=== PATIENT | male | born 1960 | race American Indian/Alaskan Native ===

== ENCOUNTER 2019-10-03 08:18 | Day surgery (SDC) | payer OTHER ==
[2019-10-03] MEDS ORDERED: SODIUM CHLORIDE 0.9% 1000 ML 1,000 ML IV SCH (10:00)
[2019-10-03] MEDS ORDERED: LIDOCAINE MPF (2%) 20 MG/1 ML VIAL 5 ML ONE (10:00)
--- NOTE | 2019-10-03 10:49 | Anesthesia Day of Surgery ---
Anesthesia Day of Surgery - Day of Surgery Patient Examined: Yes Patient H&P Reviewed: Yes Patient is NPO: Yes
--- NOTE | 2019-10-03 10:50 | Anesthesia Consultation ---
Anesthesia Consult and Med Hx Date of service: 10/03/19 - Airway Anesthetic Teeth Evaluation: Good, Caps, Crowns ROM Head & Neck: Adequate Mental/Hyoid Distance: Adequate Mallampati Class: Class II Intubation Access Assessment: Good - Pre-Operative Health Status ASA Pre-Surgery Classification: ASA3 Proposed Anesthetic Plan: MAC - Pulmonary Hx Asthma: Yes Hx Sleep Apnea: Yes - Cardiovascular System Hx Hypertension: Yes (Pt reports negative NST/ECHO earlier this year) - Gastrointestinal Hx Gastroesophageal Reflux Disease: Yes - Other Systems Hx Cancer: Yes Hx Obesity: Yes
[2019-10-03] MEDS ORDERED: PROPOFOL 200 MG/20 ML VIAL IV ONE ×4 (11:04→11:28)
--- NOTE | 2019-10-03 11:44 | Procedure Note ---
Date of procedure: 10/03/19 Pre-op diagnosis: GERD/ Colon Polyp Screening/H/O Prostate Cancer Post-op diagnosis: other (Mild to Moderate Erosive Esophagitis/ Multiple,Gastric Nodules/Gastritis and Gastric Erosion/ Two Small ,possibly Hyperplatic Polyp (one in the Rectum and the other in the Proximal Transverse Colon).) Procedure: EGD with Biopsy and Colonoscopy with Biopsy Anesthesia: [facility] – [place] Surgeon: ADALBERTO ALEGRE Estimated blood loss: minimal Pathology: list Specimen disposition: to lab Condition: stable Disposition: same day (Treat with PPI. Avoid aspirin and NSAID for 4 days; otherwise resume home medication and follow up in 1 to2 weeks ([phone]).)
[2019-10-03 12:09] VITALS: BP 131/81
--- NOTE | 2019-10-03 12:15 | Operative Report ---
PROCEDURE: EGD with biopsy. INDICATIONS: The patient is a 58-year-old -[place] gentleman who has been having some GERD symptoms. He has an underlying history of prostate cancer and has been treated for it. He also has a strong family history of prostate cancer. EGD was done to assess for the GERD symptoms. The procedure was done after getting informed consent with MAC anesthesia. PROCEDURE IN DETAIL: Instrument was passed through the hypopharynx into the esophagus, which showed mild to moderate distal erosive esophagitis. Stomach showed multiple gastric nodules, the largest being in the antrum, which was biopsied. Additional biopsy was done from the gastric antrum, gastric body and an additional gastric nodule that was noted in the proximal stomach to assess for any associated H. pylori gastritis or any other pathology. The pylorus was patent. Duodenum in the first and the second portion appeared normal. There were no gastric ulcers noted. ASSESSMENT: Gastroesophageal reflux disease symptoms, moderate erosive esophagitis, gastric nodule, gastritis, gastric erosion, patent pylorus. No peptic ulcer disease noted. PLAN: Treat the patient with PPI, have the patient avoid aspirin and aspirin-related products for the next few days. The patient is to also have a colonoscopy done as part of colon polyp screening and will follow up in the office in 1-2 weeks' time. The procedure was done in the GI lab with assistance of the GI lab team, which included DWIGHT Grayson, the engineering technician, and with assistance of Anesthesia. JOB# [id number] MILEY/OPAL
--- NOTE | 2019-10-03 13:13 | Operative Report ---
PROCEDURE: Colonoscopy INDICATIONS: A 58-year-old -[place] gentleman with a prior history of prostate cancer for which he has had treatment with seed implants. He also gives a family history of prostate cancer with other members of his family having the same condition. EGD was done prior to the colonoscopy because of GERD symptoms, which showed mild to moderate distal erosive esophagitis, multiple gastric nodules, most pronounced in the gastric antrum and gastritis with gastric erosion, for which the patient is to be treated with PPI and asked to avoid aspirin and aspirin-related products for the next few days. DESCRIPTION OF PROCEDURE: Colonoscopy was done after getting informed consent with MAC anesthesia. Initial rectal exam was unremarkable. Instrument was passed through the rectum onto the cecum, which was identified with ileocecal valve and the appendiceal orifice. Visualization was fair. The cecum was also examined on the retroverted view. No additional pathology was noted. Cecum, ascending colon showed normal mucosa. There was a small polyp noted in the probably 6-7 mm in diameter noted in the proximal transverse colon that was removed by cold biopsy and the remaining part of the transverse colon and the descending colon, and sigmoid showed normal mucosa. Additionally, there was another small 5-6 mm polyp noted in the rectum, possibly hyperplastic that was removed by cold biopsy. There was minimal bleeding from the polypectomy sites and the rectum showed minor internal hemorrhoid on the retroverted view. There were no complications associated with the procedure. ASSESSMENT: Colon polyp screening. Two small polyps noted, one in the rectum and one in the transverse colon, may have been hyperplastic in type. Minor internal hemorrhoid. PLAN: Treat the patient with PPI because of the EGD findings of esophagitis, gastritis. The patient is to avoid aspirin and aspirin-related products for the next 4-5 days. Otherwise, resume home medication. Follow up in the office in 1-2 weeks' time. Further adjustment will be according to the treatment findings. The procedure was done in the GI lab with assistance of the GI lab team, which included DWIGHT Grayson, the tire maintenance technician and with assistance of anesthesia. JOB# [id number] MILEY/OPAL
--- NOTE | 2019-10-03 14:54 | Post Anesthesia Evaluation ---
- Post Anesthesia Evaluation Patient Participated: Yes Airway Patent: Yes Stable Respiratory Function: Yes Nausea/Vomiting: No Pain Manageable: Yes Adequeate Hydration: Yes Anesthesia Complications: No Block Receding Appropriately: Not Applicable Patient on Ventilator: No
== END 2019-10-03 08:19 | disposition home or self-care (01) ==
LOC: GIO 08:18
DX: Z12.11 Encounter for screening for malignant neoplasm of colon (principal); K63.5 Polyp of colon; K62.1 Rectal polyp; K21.0 Gastro-esophageal reflux disease with esophagitis; I10 Essential (primary) hypertension; K64.8 Other hemorrhoids; K29.70 Gastritis, unspecified, without bleeding; K29.50 Unspecified chronic gastritis without bleeding; B96.81 Helicobacter pylori [H. pylori] as the cause of diseases classified elsewhere; E78.00 Pure hypercholesterolemia, unspecified; J45.909 Unspecified asthma, uncomplicated; G47.30 Sleep apnea, unspecified; K21.9 Gastro-esophageal reflux disease without esophagitis; E66.9 Obesity, unspecified; Z68.41 Body mass index [BMI] 40.0-44.9, adult; Z98.890 Other specified postprocedural states; Z80.42 Family history of malignant neoplasm of prostate; Z79.899 Other long term (current) drug therapy
CPT/HCPCS: 43239; 45380; 88305; 88342; J2704; J7030